=== PATIENT | female | born 1995 | race Caucasian/White ===

== ENCOUNTER 2016-12-24 13:57 | Inpatient (IN) | payer MEDICAID ==
[2016-12-24] MEDS ORDERED: Sodium Chloride 0.9% 10 ML Syringe FLUSH PRN (15:00)
--- NOTE | 2016-12-24 16:10 | PCM.PNLD ---
Labor Progress Note - VS & Meds Vital Signs: Last Vital Signs Temp 98.3 F 12/24/16 14:05 Pulse 90 12/24/16 14:05 Resp 16 12/24/16 14:05 BP 134/84 12/24/16 14:05 Pulse Ox 98 12/24/16 14:05 Active Medications: Current Medications Sodium Chloride (Saline Flush) 10 ml FLUSH ASDIRECTED PRN PRN Reason: Keep Vein Open - Uterine Contractions Uterine Monitoring Mode: External [place] Contraction Frequency (min): 2-7 Contraction Duration (sec): 40-70 Contraction Intensity: Moderate Uterine Resting Tone: Soft - Vaginal Exam Dilation (cm): 4 Effacement (Percent): 90 Station: -1 Cervical Position: Midposition Sterile Vaginal Exam Performed By: Ori Thompson Vaginal Exam Comment: Artificial rupture of membranes clear fluid. Repeat negative. Vaginal delivery
[2016-12-24] MEDS ORDERED: Lactated Ringers 1,000 ML IV ONE (16:30)
[2016-12-24] MEDS ORDERED: Oxytocin 10 Units/1 ML SDV IM PRN (16:31)
[2016-12-24] MEDS ORDERED: Lidocaine 1% 20 ML MDV INJECT PRN (16:32)
[2016-12-24] MEDS ORDERED: fentaNYL 100 MCG/2 ML SDV ONE (17:12)
[2016-12-24] MEDS ORDERED: fentaNYL 300 MCG in Ropivacaine 200 ML IV ONE (17:15)
[2016-12-24] MEDS ORDERED: fentaNYL 100 MCG/2 ML SDV EPIDUR ONE (17:15)
[2016-12-24] MEDS: Lactated Ringers 1,000 ML IV SCH ×2 (18:30→19:21)
[2016-12-24] MEDS ORDERED: Naloxone 0.4 MG in Sodium Chloride 0.9% 100 ML IV PRN (18:40)
[2016-12-24] MEDS ORDERED: Naloxone 0.4 MG/ML SDV IVPUSH PRN (18:40)
[2016-12-24] MEDS ORDERED: ePHEDrine 50 MG/ML SDV IVPUSH PRN (18:40)
[2016-12-24] MEDS ORDERED: diphenhydrAMINE 50 MG/ML SDV IVPUSH PRN (18:40)
[2016-12-24] MEDS ORDERED: Promethazine 25 MG/ML SDV IV PRN (18:40)
[2016-12-24] MEDS ORDERED: Acetaminophen/Codeine 300-30 MG Tab PO PRN (23:02)
--- NOTE | 2016-12-24 23:08 | PCM.DEL ---
L & D Note - General Info Date of Service: 12/24/16 - Delivery Note Labor: spontaneous Delivery Outcome: Livebirth Delivery Method: Spontaneous Vaginal Delivery Presentation: OA Nuchal cord: none Prep: povidone-iodine (betadine Anesthesia Type: Local, Epidural Anesthetic: lidocaine (xylocaine) 1% plain Local anesthetic volume: 3cc Amniotic Fluid Description: Clear Episiotomy Type: None Laceration: 1st degree Suture type: vicryl Suture size: 4-0 Placenta: intact, spontaneous Cord: 3 vessels Resuscitation needed: No [place]: suctioned Delivery Comments (Free Text/Narrative):: Blood loss less than 500. No complications. - Patient Data Vitals - most recent: Last Vital Signs Temp 98.3 F 12/24/16 14:05 Pulse 94 12/24/16 18:31 Resp 16 12/24/16 14:05 BP 102/62 12/24/16 18:31 Pulse Ox 98 12/24/16 14:05 Weight - most recent: 149 lb I&O - last 24 hours: Intake & Output 12/24/16 12/24/16 12/25/16 14:59 22:59 06:59 Intake Total 2000 Balance 2000 Med Orders - Current: Current Medications Acetaminophen/Codeine Phosphate (Tylenol With Codeine No.3 300mg/30mg) 1 tab PO Q4H PRN PRN Reason: Pain (moderate 4-6) Diphenhydramine HCl (Benadryl) 25 mg IVPUSH ASDIRECTED PRN PRN Reason: PRURITUS Ephedrine Sulfate (Ephedrine Sulfate) 5 mg IVPUSH ASDIRECTED PRN PRN Reason: HYPOTENSION Lactated Ringer's (Ringers, Lactated) 1,000 mls @ 125 mls/hr IV ASDIRECTED [facility] Last Admin: 12/24/16 19:21 Dose: 125 mls/hr Naloxone HCl 0.4 mg/ Sodium (Chloride) 101 mls @ 25 mls/hr IV ASDIRECTED PRN PRN Reason: PER ORDER OF ANESTHESIA Ibuprofen (Motrin) 800 mg PO Q8H [facility] Lidocaine HCl (Xylocaine 1%) 20 ml INJECT ONETIME PRN PRN Reason: Other Naloxone HCl (Narcan) 0.1 mg IVPUSH ASDIRECTED PRN PRN Reason: RESPIRATORY STATUS Non-Formulary Medication (Pnv95/Ferrous Fumarate/Fa [ Vitamins Tablet]) 1 each PO DAILY [facility] Oxytocin (Pitocin) 10 unit IM ONETIME PRN PRN Reason: Other Promethazine HCl (Phenergan) 6.25 - 12.5 mg IV Q4H PRN PRN Reason: NAUSEA AND VOMITING Sodium Chloride (Saline Flush) 10 ml FLUSH ASDIRECTED PRN PRN Reason: Keep Vein Open Discontinued Medications Fentanyl (Sublimaze) Confirm Administered Dose 400 mcg .ROUTE .STK-MED ONE Stop: 12/24/16 17:13 Lactated Ringer's (Ringers, Lactated) 1,000 mls @ 999 mls/hr IV BOLUS ONE Stop: 12/24/16 17:30 Last Admin: 12/24/16 17:00 Dose: 999 mls/hr - Problem List & Annotations (1) Vaginal delivery SNOMED Code(s): 696148164 Code(s): O80 - ENCOUNTER FOR FULL-TERM UNCOMPLICATED DELIVERY Status: Acute Current Visit: Yes - Problem List Review Problem List Initiated/Reviewed/Updated: Yes - My Orders Last 24 Hours: My Active Orders 12/24/16 15:00 Height and Weight [RC] Q8H Sodium Chloride 0.9% [Saline Flush] 10 ml FLUSH ASDIRECTED PRN Peripheral IV Insertion Adult [OM.PC] Urgent Resuscitation Status Routine 12/24/16 15:01 Up ad [place] [RC] ASDIRECTED 12/24/16 16:31 Oxytocin [Pitocin] 10 unit IM ONETIME PRN 12/24/16 16:32 Lidocaine 1% [Xylocaine 1%] 20 ml INJECT ONETIME PRN 12/24/16 18:15 Lactated Ringers [Ringers, Lactated] 1,000 ml IV ASDIRECTED 12/24/16 23:02 May Shower [RC] ASDIRECTED Vital Signs [RC] PFP Acetaminophen/Codeine [Tylenol with Codeine No.3 300MG/30MG] 1 tab PO Q4H PRN Assess Lochia [WOMSER] Per Unit Routine Assess Uterine Involution [WOMSER] Per Unit Routine Breast Pump [WOMSER] Per Unit Routine 12/24/16 23:04 Ice Therapy [OM.PC] Per Unit Routine Perineal Care [OM.PC] Per Unit Routine Peripheral IV Discontinue [OM.PC] Routine Sitz Bath [OM.PC] Per Unit Routine 12/24/16 23:15 Ibuprofen [Motrin] 800 mg PO Q8H 12/24/16 Breakfast Nothing Per Oral Diet [DIET] Regular Diet [DIET] 12/25/16 05:11 HEMOGLOBIN/HEMATOCRIT,HH [HEME] AM 12/25/16 09:00 Escitalopram [Lexapro] 20 mg PO DAILY PNV95/Ferrous Fumarate/FA [ Vitamins Tablet] 1 each PO DAILY - Plan Plan:: 1. Normal care. 2. Ibuprofen 800 every 8 hours scheduled and Tylenol #3 when necessary.
[2016-12-24] MEDS: Ibuprofen 800 MG Tab PO SCH (23:53)
[2016-12-25] MEDS: Ibuprofen 800 MG Tab PO SCH ×3 (06:32→23:37)
--- NOTE | 2016-12-25 07:53 | PCM.PNPP ---
- General Info Date of Service: 12/25/16 Admission Dx/Problem (Free Text): Patient states she has mild bleeding. No other complaints. - Patient Data Vital Signs - most recent: Last Vital Signs Temp 98.3 F 12/24/16 14:05 Pulse 94 12/24/16 18:31 Resp 16 12/24/16 14:05 BP 102/62 12/24/16 18:31 Pulse Ox 98 12/24/16 14:05 Weight - most recent: 149 lb I&O - last 24 hours: Intake & Output 12/24/16 12/25/16 12/25/16 22:59 06:59 14:59 Intake Total 2000 Balance 2000 Lab Results - last 24 hrs: Laboratory Results - last 24 hr 12/25/16 Range/Units 06:40 Hgb 10.8 L D (11.5-15.5) g/dL Hct 32.7 (30.0-51.3) % Med Orders - Current: Current Medications Acetaminophen/Codeine Phosphate (Tylenol With Codeine No.3 300mg/30mg) 1 tab PO Q4H PRN PRN Reason: Pain (moderate 4-6) Diphenhydramine HCl (Benadryl) 25 mg IVPUSH ASDIRECTED PRN PRN Reason: PRURITUS Ephedrine Sulfate (Ephedrine Sulfate) 5 mg IVPUSH ASDIRECTED PRN PRN Reason: HYPOTENSION Escitalopram Oxalate (Lexapro) 20 mg PO DAILY [facility] Lactated Ringer's (Ringers, Lactated) 1,000 mls @ 125 mls/hr IV ASDIRECTED [facility] Last Admin: 12/24/16 19:21 Dose: 125 mls/hr Naloxone HCl 0.4 mg/ Sodium (Chloride) 101 mls @ 25 mls/hr IV ASDIRECTED PRN PRN Reason: PER ORDER OF ANESTHESIA Ibuprofen (Motrin) 800 mg PO Q8H [facility] Last Admin: 12/25/16 06:32 Dose: 800 mg Lidocaine HCl (Xylocaine 1%) 20 ml INJECT ONETIME PRN PRN Reason: Other Last Admin: 12/24/16 22:40 Dose: 20 ml Naloxone HCl (Narcan) 0.1 mg IVPUSH ASDIRECTED PRN PRN Reason: RESPIRATORY STATUS Oxytocin (Pitocin) 10 unit IM ONETIME PRN PRN Reason: Other Last Admin: 12/24/16 22:40 Dose: 10 unit Multivit/Folic Acid/Iron (-U) 1 each PO DAILY [facility] Promethazine HCl (Phenergan) 6.25 - 12.5 mg IV Q4H PRN PRN Reason: NAUSEA AND VOMITING Sodium Chloride (Saline Flush) 10 ml FLUSH ASDIRECTED PRN PRN Reason: Keep Vein Open Discontinued Medications Fentanyl (Sublimaze) Confirm Administered Dose 400 mcg .ROUTE .STK-MED ONE Stop: 12/24/16 17:13 Lactated Ringer's (Ringers, Lactated) 1,000 mls @ 999 mls/hr IV BOLUS ONE Stop: 12/24/16 17:30 Last Admin: 12/24/16 17:00 Dose: 999 mls/hr - Infant Interaction Support Person: Mother, Sister, Significant Other - Recovery Exam Fundal Tone: Firms with Massage Fundal Level: At Umbilicus Fundal Placement: Midline Lochia Amount: Small Lochia Color: Rubra/Red Perineum Description: Edematous Episiotomy/Laceration: Approximated Bladder Status: Voiding - Exam General: alert, oriented Lungs: Normal respiratory effort Abdomen: other (Fundus firm) Extremities: no edema - Problem List & Annotations (1) Vaginal delivery SNOMED Code(s): 575691736 Code(s): O80 - ENCOUNTER FOR FULL-TERM UNCOMPLICATED DELIVERY Status: Acute Current Visit: Yes - Problem List Review Problem List Initiated/Reviewed/Updated: Yes - My Orders Last 24 Hours: My Active Orders 12/24/16 15:00 Height and Weight [RC] Q8H Sodium Chloride 0.9% [Saline Flush] 10 ml FLUSH ASDIRECTED PRN Peripheral IV Insertion Adult [OM.PC] Urgent Resuscitation Status Routine 12/24/16 15:01 Up ad [place]an [RC] ASDIRECTED 12/24/16 16:31 Oxytocin [Pitocin] 10 unit IM ONETIME PRN 12/24/16 16:32 Lidocaine 1% [Xylocaine 1%] 20 ml INJECT ONETIME PRN 12/24/16 18:15 Lactated Ringers [Ringers, Lactated] 1,000 ml IV ASDIRECTED 12/24/16 23:02 May Shower [RC] ASDIRECTED Vital Signs [RC] PFP Acetaminophen/Codeine [Tylenol with Codeine No.3 300MG/30MG] 1 tab PO Q4H PRN Assess Lochia [WOMSER] Per Unit Routine Assess Uterine Involution [WOMSER] Per Unit Routine Breast Pump [WOMSER] Per Unit Routine 12/24/16 23:04 Ice Therapy [OM.PC] Per Unit Routine Perineal Care [OM.PC] Per Unit Routine Peripheral IV Discontinue [OM.PC] Routine Sitz Bath [OM.PC] Per Unit Routine 12/24/16 23:15 Ibuprofen [Motrin] 800 mg PO Q8H 12/25/16 09:00 Escitalopram [Lexapro] 20 mg PO DAILY Vit/FA/Fe Fumarate [-U] 1 each PO DAILY - Plan Plan:: 1. continue current care
[2016-12-25] MEDS: Prenatal Multivitamin with Calcium/Folic Acid/Fe Fumarate Cap PO SCH (09:49)
[2016-12-25] MEDS: Escitalopram 20 MG Tab PO SCH (09:49)
[2016-12-26] MEDS: Ibuprofen 800 MG Tab PO SCH (07:24)
--- NOTE | 2016-12-26 07:39 | PCM.PNPP ---
- General Info Date of Service: 12/26/16 Admission Dx/Problem (Free Text): Patient without complaints. Bleeding slowing. She's tolerating her pain with ibuprofen. No other concerns. Functional Status: Reports: pain controlled - Patient Data Vital Signs - most recent: Last Vital Signs Temp 97.5 F 12/25/16 19:30 Pulse 87 12/25/16 19:30 Resp 16 12/25/16 19:30 BP 130/85 12/25/16 19:30 Pulse Ox 99 12/25/16 19:30 Weight - most recent: 149 lb Med Orders - Current: Current Medications Acetaminophen/Codeine Phosphate (Tylenol With Codeine No.3 300mg/30mg) 1 tab PO Q4H PRN PRN Reason: Pain (moderate 4-6) Escitalopram Oxalate (Lexapro) 20 mg PO DAILY [facility] Last Admin: 12/25/16 09:49 Dose: 20 mg Lactated Ringer's (Ringers, Lactated) 1,000 mls @ 125 mls/hr IV ASDIRECTED [facility] Last Admin: 12/24/16 19:21 Dose: 125 mls/hr Ibuprofen (Motrin) 800 mg PO Q8H [facility] Last Admin: 12/26/16 07:24 Dose: 800 mg Lidocaine HCl (Xylocaine 1%) 20 ml INJECT ONETIME PRN PRN Reason: Other Last Admin: 12/24/16 22:40 Dose: 20 ml Oxytocin (Pitocin) 10 unit IM ONETIME PRN PRN Reason: Other Last Admin: 12/24/16 22:40 Dose: 10 unit Multivit/Folic Acid/Iron (-U) 1 each PO DAILY [facility] Last Admin: 12/25/16 09:49 Dose: 1 each Sodium Chloride (Saline Flush) 10 ml FLUSH ASDIRECTED PRN PRN Reason: Keep Vein Open Discontinued Medications Diphenhydramine HCl (Benadryl) 25 mg IVPUSH ASDIRECTED PRN PRN Reason: PRURITUS Ephedrine Sulfate (Ephedrine Sulfate) 5 mg IVPUSH ASDIRECTED PRN PRN Reason: HYPOTENSION Fentanyl (Sublimaze) Confirm Administered Dose 400 mcg .ROUTE .STK-MED ONE Stop: 12/24/16 17:13 Lactated Ringer's (Ringers, Lactated) 1,000 mls @ 999 mls/hr IV BOLUS ONE Stop: 12/24/16 17:30 Last Admin: 12/24/16 17:00 Dose: 999 mls/hr Naloxone HCl 0.4 mg/ Sodium (Chloride) 101 mls @ 25 mls/hr IV ASDIRECTED PRN PRN Reason: PER ORDER OF ANESTHESIA Naloxone HCl (Narcan) 0.1 mg IVPUSH ASDIRECTED PRN PRN Reason: RESPIRATORY STATUS Promethazine HCl (Phenergan) 6.25 - 12.5 mg IV Q4H PRN PRN Reason: NAUSEA AND VOMITING - Interaction Support Person: Mother, Sister, Significant Other - Recovery Exam Fundal Tone: Firm Fundal Level: 1 Fingerbreadths Below Umbilicus Fundal Placement: Midline Lochia Amount: Small Lochia Color: Rubra/Red Perineum Description: Edematous Episiotomy/Laceration: Approximated Bladder Status: Voiding Urinary Elimination: Voided - Exam General: alert, oriented, cooperative Lungs: Normal respiratory effort Abdomen: other (Fundus firm) Extremities: no edema Psy/Mental Status: alert, normal affect, normal mood - Problem List & Annotations (1) Vaginal delivery SNOMED Code(s): 405860938 Code(s): O80 - ENCOUNTER FOR FULL-TERM UNCOMPLICATED DELIVERY Status: Acute Current Visit: Yes - Problem List Review Problem List Initiated/Reviewed/Updated: Yes - My Orders Last 24 Hours: My Active Orders 12/25/16 09:00 Escitalopram [Lexapro] 20 mg PO DAILY Vit/FA/Fe Fumarate [-U] 1 each PO DAILY - Plan Plan:: 1. discharge home
--- NOTE | 2016-12-26 07:44 | PCM.DCSUM1 ---
Discharge Summary - Hospital Course Free Text/Narrative:: Hospital course-status post delivery hemoglobin was over 10. Patient breast fed and pump at the same time. It went well and she had no concerns. Her pain was controlled with ibuprofen and she did not use Tylenol No. 3. Bleeding was light. Brief History: This is a 21-year-old came in in spontaneous labor. She was 39 weeks. She had a normal female healthy vaginally. - Discharge Data Discharge Date: 12/26/16 Discharge Disposition: Home, Self-Care 01 Condition: Good - Discharge Diagnosis/Problem(s) (1) Vaginal delivery SNOMED Code(s): 352294066 ICD Code: O80 - ENCOUNTER FOR FULL-TERM UNCOMPLICATED DELIVERY Status: Acute Current Visit: Yes - Patient Instructions Diet: Regular Diet as Tolerated Activity: As Tolerated Driving: May Drive Today Showering/Bathing: May Shower Notify Provider of: Fever, Increased Pain, Swelling and Redness, Drainage, Nausea and/or Vomiting Other/Special Instructions: 1. Recheck in 6 weeks for care with Dr. 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 [employer] - [place], How To Prepare Infant Formula, Home Care Instructions for Mom, Baby Safe Sleeping Information, Kumo-cx-Recl, Challenges and Solutions, Care After Vaginal Delivery - Discharge Summary/Plan Comment DC Time >30 min.: No - Patient Data Vitals - Most Recent: Last Vital Signs Temp 97.5 F 12/25/16 19:30 Pulse 87 12/25/16 19:30 Resp 16 12/25/16 19:30 BP 130/85 12/25/16 19:30 Pulse Ox 99 12/25/16 19:30 Weight - Most Recent: 149 lb Med Orders - Current: Current Medications Acetaminophen/Codeine Phosphate (Tylenol With Codeine No.3 300mg/30mg) 1 tab PO Q4H PRN PRN Reason: Pain (moderate 4-6) Escitalopram Oxalate (Lexapro) 20 mg PO DAILY [facility] Last Admin: 12/25/16 09:49 Dose: 20 mg Lactated Ringer's (Ringers, Lactated) 1,000 mls @ 125 mls/hr IV ASDIRECTED [facility] Last Admin: 12/24/16 19:21 Dose: 125 mls/hr Ibuprofen (Motrin) 800 mg PO Q8H [facility] Last Admin: 12/26/16 07:24 Dose: 800 mg Lidocaine HCl (Xylocaine 1%) 20 ml INJECT ONETIME PRN PRN Reason: Other Last Admin: 12/24/16 22:40 Dose: 20 ml Oxytocin (Pitocin) 10 unit IM ONETIME PRN PRN Reason: Other Last Admin: 12/24/16 22:40 Dose: 10 unit Multivit/Folic Acid/Iron (-U) 1 each PO DAILY [facility] Last Admin: 12/25/16 09:49 Dose: 1 each Sodium Chloride (Saline Flush) 10 ml FLUSH ASDIRECTED PRN PRN Reason: Keep Vein Open Discontinued Medications Diphenhydramine HCl (Benadryl) 25 mg IVPUSH ASDIRECTED PRN PRN Reason: PRURITUS Ephedrine Sulfate (Ephedrine Sulfate) 5 mg IVPUSH ASDIRECTED PRN PRN Reason: HYPOTENSION Fentanyl (Sublimaze) Confirm Administered Dose 400 mcg .ROUTE .STK-MED ONE Stop: 12/24/16 17:13 Lactated Ringer's (Ringers, Lactated) 1,000 mls @ 999 mls/hr IV BOLUS ONE Stop: 12/24/16 17:30 Last Admin: 12/24/16 17:00 Dose: 999 mls/hr Naloxone HCl 0.4 mg/ Sodium (Chloride) 101 mls @ 25 mls/hr IV ASDIRECTED PRN PRN Reason: PER ORDER OF ANESTHESIA Naloxone HCl (Narcan) 0.1 mg IVPUSH ASDIRECTED PRN PRN Reason: RESPIRATORY STATUS Promethazine HCl (Phenergan) 6.25 - 12.5 mg IV Q4H PRN PRN Reason: NAUSEA AND VOMITING *Q Meaningful Use (DIS) - VTE *Q VTE Criteria *Q: - Stroke *Q Stroke Criteria *Q: - AMI *Q AMI Criteria *Q:
[2016-12-26] MEDS ORDERED: Measles, Mumps & Rubella Vaccine 0.5 ML SDV SUBCUT ONE (08:16)
[2016-12-26] MEDS: Prenatal Multivitamin with Calcium/Folic Acid/Fe Fumarate Cap PO SCH (08:51)
[2016-12-26] MEDS: Escitalopram 20 MG Tab PO SCH (08:51)
[2016-12-26 12:02] VITALS: BP 123/80
== END 2016-12-26 10:30 | disposition home or self-care (01) | DRG 560 ==
LOC: FB.OBCHECK 13:57 → FB.OB 13:57 → FB.OBCHECK 16:03
PROVIDERS: ADMIT Family Medicine; ATTEND Family Medicine
PROC: 10E0XZZ Delivery of Products of Conception, External Approach (ICD-10-PCS; principal; 2016-12-24)
PROC: 10907ZC Drainage of Amniotic Fluid, Therapeutic from Products of Conception, Via Natural or Artificial Opening (ICD-10-PCS; 2016-12-24)
PROC: 00HU33Z Insertion of Infusion Device into Spinal Canal, Percutaneous Approach (ICD-10-PCS; 2016-12-24)
PROC: 0HQ9XZZ Repair Perineum Skin, External Approach (ICD-10-PCS; 2016-12-24)
DX: O70.0 First degree perineal laceration during delivery (principal); Z3A.38 38 weeks gestation of pregnancy; Z37.0 Single live birth
CPT/HCPCS: 36415; 85014; 85018; 90707; 99211; A4217; A9270-GY; J2590; J2795; J3010; J7120

== ENCOUNTER 2019-09-30 23:06 | Emergency (ER) | payer BC, MEDICAID ==
[2019-09-30] MEDS ORDERED: Sodium Chloride 0.9% 1,000 ML IV SCH (23:30)
--- NOTE | 2019-09-30 23:38 | EDM.PDOC ---
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 [employer] Dr Thompson following her for , last seen yesterday, no cx check which will be next week states she has some soreness in her lower abd from vomiting, denies ctxs does not want Zofran ("does not work"), just wants IVF says she n/v throughout her first preg and got IVF x 11x, this is just the 2nd time with this preg, last time was in Feb head vtx on exam here as well as in office, FHT 147, good activity no dysuria or burning, no f/c/d her with and daughter bodyach Pain Score (Numeric/FACES): 6 - Related Data Allergies Allergy/AdvReac Type Severity Reaction Status Date / Time hydrocodone Allergy Itching Verified 05/27/18 15:52 Home Meds: Home Meds Escitalopram [Lexapro] 20 mg PO DAILY 05/07/16 [History] Past Medical History - Past Health History Medical/Surgical History: Denies Medical/Surgical History Respiratory History: Reports: Asthma Other Respiratory History: stress induced asthma [employer]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: 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 [employer]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 [employer]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 [employer]EDER History: LMP 03/30/2016 Psychiatric History: Reports: ADHD, Anxiety, Depression Hematologic History: Reports: Anemia - Infectious Disease History Infectious Disease History: Reports: Chicken Pox Social & Family History - Family History Family Medical History: Noncontributory - Caffeine Use Caffeine Use: Reports: Other Caffeine Use Comment: rarely ED ROS GENERAL - Review of Systems Review Of Systems: See Below Constitutional: Reports: No Symptoms HEENT: Reports: No Symptoms Respiratory: Reports: No Symptoms Cardiovascular: Reports: No Symptoms Endocrine: Reports: No Symptoms GI/Abdominal: Reports: Abdominal Pain, Nausea, Vomiting : Reports: No Symptoms Musculoskeletal: Reports: No Symptoms Skin: Reports: No Symptoms Neurological: Reports: No Symptoms Psychiatric: Reports: No Symptoms Hematologic/Lymphatic: Reports: No Symptoms Immunologic: Reports: No Symptoms ED EXAM - Physical Exam Exam: See Below Exam Limited By: No Limitations General Appearance: Alert, WD/WN, No Apparent Distress, Other (alert, pleasant, nonill, cooperative) Eye Exam: Bilateral Eye: EOMI Nose: Normal Inspection Throat/Mouth: Normal Inspection Head: Atraumatic, Normocephalic Neck: Normal Inspection, Supple Respiratory/Chest: No Respiratory Distress, Lungs Clear, Normal Breath Sounds Cardiovascular: Regular Rate, Rhythm, No Edema GI/Abdominal Exam: Soft, Non-Tender, Other (gravid, quite soft, vtx by [place] , no ctx or tightening of uterus, no definite tender across abd, no CVAT b/l) Back Exam: Normal Inspection, Full Range of Motion Extremities: Normal Inspection, Normal Range of Motion, Non-Tender, Other ( trace pretib edema b/l, symmetric) Neurological: Alert, Oriented, CN II-XII Intact, Normal Cognition, No Motor/ Sensory Deficits Psychiatric: Normal Affect, Normal Mood Skin Exam: Warm, Dry, Intact, Normal Color, No Rash Course - Vital Signs Last Recorded V/S: Last Vital Signs Temp 36.8 C 09/30/19 23:06 Pulse 104 H 09/30/19 23:06 Resp 17 09/30/19 23:06 BP 113/71 09/30/19 23:06 Pulse Ox 100 09/30/19 23:06 - Orders/Labs/Meds Orders: Active Orders 24 hr Category Date Time Status URINALYSIS W/MICROSCOPIC [UA W/MICROSCOPIC] [URIN] Stat Lab 09/30/19 23:25 Ordered Sodium Chloride 0.9% [Normal Saline] 1,000 ml Med 09/30/19 23:30 Ordered IV ASDIRECTED Medication Orders Sodium Chloride (Normal Saline) 1,000 mls @ 999 mls/hr IV ASDIRECTED [facility] Last Admin: 09/30/19 23:35 Dose: 999 mls/hr Labs: Laboratory Tests 09/30/19 09/30/19 Range/Units 23:38 23:38 WBC 12.0 (4.5-12.0) X10-3/uL RBC 3.80 (3.23-5.20) x10(6)uL Hgb 10.1 L (11.5-15.5) g/dL Hct 30.5 (30.0-51.3) % MCV 80.2 (80-96) fL MCH 26.5 L (27.7-33.6) pg MCHC 33.0 (32.2-35.4) g/dL RDW 16.1 H (11.5-15.5) % Plt Count 315 (125-369) X10(3)uL MPV 8.0 (7.4-10.4) fL Neut % (Auto) 84.3 H (46-82) % Lymph % (Auto) 9.6 L (13-37) % [place] % (Auto) 5.6 (4-12) % Eos % (Auto) 0 L (1.0-5.0) % Baso % (Auto) 0 (0-2) % Neut # (Auto) 10.1 H (1.6-8.3) # Lymph # (Auto) 1.2 (0.6-5.0) # [place] # (Auto) 0.7 (0.0-1.3) # Eos # (Auto) 0.0 (0.0-0.8) # Baso # (Auto) 0.0 (0.0-0.2) # Sodium 141 (135-145) mmol/L Potassium 3.6 (3.5-5.3) mmol/L Chloride 105 (100-110) mmol/L Carbon Dioxide 26 (21-32) mmol/L BUN 9 (7-18) mg/dL Creatinine 0.7 (0.55-1.02) mg/dL Est Cr Clr Drug Dosing 100.74 mL/min Estimated GFR (MDRD) > 60 (>60) BUN/Creatinine Ratio 12.9 (9-20) Glucose 85 (80-116) mg/dL Calcium 7.9 L (8.6-10.2) mg/dL Total Bilirubin 0.3 (0.1-1.3) mg/dL AST 17 (5-25) IU/L ALT 13 D (12-36) U/L Alkaline Phosphatase 100 (56-112) IU/L Total Protein 6.6 (6.0-8.0) g/dL Albumin 2.6 L (3.5-5.2) g/dL Globulin 4.0 g/dL Albumin/Globulin Ratio 0.7 Meds: Medications Generic Name Dose Route Start Last Admin Trade Name Marco Antonio PRN Reason Stop Dose Admin Sodium Chloride 1,000 mls @ 999 mls/hr 09/30/19 23:30 09/30/19 23:35 Normal Saline IV 999 mls/hr ASDIRECTED [facility] Administration - Re-Assessments/Exams Free Text/Narrative Re-Assessment/Exam: 10/01/19 00:52 felt better after 1 liter of NS, still some discomfort in lower abd, no ctxs did not want a 2nd liter of NS, wanted to go home and rest fetus remained active vss, no s/s of preeclampsia 10/01/19 01:03 pt advised that doxylamine comes OTC and can be used to supplement her Rx pt has 50 ketones in urine, would benefit from a 2nd liter of NS, however she prefers to go home to put her daughter to bed, understands that she can come back any time for additional IV fluids Departure - Departure Time of Disposition: 00:53 Disposition: Home, Self-Care 01 Condition: Good Clinical Impression: Nausea and vomiting during , Moderate dehydration, Ketonuria - Discharge Information *PRESCRIPTION DRUG MONITORING PROGRAM REVIEWED*: Not Applicable *COPY OF PRESCRIPTION DRUG MONITORING REPORT IN PATIENT [place]: Not Applicable Instructions: Nausea and Vomiting, Adult, Rehydration, Adult Referrals: Ori Thompson MD [Primary Care Provider] - Additional Instructions: Increase fluids. Get adequate rest. May take additional doses of doxylamine 12.5 mg (1/2 tab of 25 mg OTC) in the morning and another in the middle of the day, as needed. Contact Dr Thompson for further instructions. Return to Emergency Department if you are feeling worse or are unable to keep fluids down. Sepsis Event Note - Evaluation Sepsis Screening Result: No Definite Risk - Focused Exam Vital Signs: Vital Signs Temp Pulse Resp BP Pulse Ox 09/30/19 23:06 36.8 C 104 H 17 113/71 100 Date Exam was Performed: 10/01/19 Time Exam was Performed: 00:52 - My Orders Last 24 Hours: My Active Orders 09/30/19 23:25 URINALYSIS W/MICROSCOPIC [UA W/MICROSCOPIC] [URIN] Stat 09/30/19 23:30 Sodium Chloride 0.9% [Normal Saline] 1,000 ml IV ASDIRECTED - Assessment/Plan Last 24 Hours: My Active Orders 09/30/19 23:25 URINALYSIS W/MICROSCOPIC [UA W/MICROSCOPIC] [URIN] Stat 09/30/19 23:30 Sodium Chloride 0.9% [Normal Saline] 1,000 ml IV ASDIRECTED
[2019-10-01 01:12] VITALS: BP 136/80; PULSE 89
== END 2019-10-01 01:09 | disposition home or self-care (01) ==
LOC: FB.ED 23:06
DX: O99.283 Endocrine, nutritional and metabolic diseases complicating pregnancy, third trimester (principal); E86.0 Dehydration; O21.2 Late vomiting of pregnancy; O99.513 Diseases of the respiratory system complicating pregnancy, third trimester; J45.909 Unspecified asthma, uncomplicated; O99.353 Diseases of the nervous system complicating pregnancy, third trimester; F32.9 Major depressive disorder, single episode, unspecified; F41.9 Anxiety disorder, unspecified; O99.89 Other specified diseases and conditions complicating pregnancy, childbirth and the puerperium; R82.4 Acetonuria; Z88.5 Allergy status to narcotic agent; Z3A.36 36 weeks gestation of pregnancy
CPT/HCPCS: 36415; 80053; 81001; 85025; 96360; 99284; J7030

== ENCOUNTER 2019-10-14 04:08 | Inpatient (IN) | payer BC ==
[2019-10-14] MEDS: Lactated Ringers 1,000 ML IV SCH ×2 (04:19→04:42)
[2019-10-14] MEDS ORDERED: Ampicillin 2 GM in Sodium Chloride 0.9% 100 ML IV ONE (04:32)
[2019-10-14] MEDS ORDERED: Oxytocin 10 Units/1 ML SDV IM ONE (05:00)
[2019-10-14] MEDS ORDERED: Witch Hazel Medicated Pads 40/Jar TOP PRN (05:27)
--- NOTE | 2019-10-14 05:33 | PCM.DEL ---
L & D Note - General Info Date of Service: 10/14/19 - Delivery Note Labor: Spontaneous Delivery Outcome: Livebirth Presentation: Left Occiput Anterior (JOSE) Nuchal Cord: Present (x1) Anesthesia Type: None Amniotic Fluid Description: Meconium Stained Episiotomy Type: None Laceration: None Placenta: Intact, Spontaneous Cord: 3 Vessels Resuscitation Needed: No [place]: Bulb Syringe - General Info Date of Service: 10/14/19 Admission Dx/Problem (Free Text): 24-year-old EDC 10/23/19 comes in in spontaneous labor. She had spontaneous rupture membranes with meconium-stained. Delivered within a half hour after she ruptured membranes. Should one nuchal cord and the baby. Mom is group B+. 2 g answer given and most of the medication cut in before she delivered. Cord blood was taken and the cord was clamped on the perineum and dad cut the cord. Placenta was delivered and all intact. Blood loss less than 500 and complications none. - Patient Data Weight - Most Recent: 151 lb Med Orders - Current: Current Medications Acetaminophen/Codeine Phosphate (Tylenol With Codeine No.3 300mg/30mg) 1 tab PO Q4H PRN PRN Reason: Pain (moderate 4-6) Escitalopram Oxalate (Lexapro) 20 mg PO DAILY [facility] Lactated Ringer's (Ringers, Lactated) 1,000 mls @ 999 mls/hr IV BOLUS [facility] Last Admin: 10/14/19 04:19 Dose: 999 mls/hr Ibuprofen (Motrin) 800 mg PO Q8H [facility] Multivit/Folic Acid/Iron (-U) 1 each PO DAILY [facility] Chan Ontiveros (Tucks) 1 pad TOP ASDIRECTED PRN PRN Reason: Hemorrhoids Discontinued Medications Ampicillin Sodium 2 gm/ Sodium (Chloride) 100 mls @ 200 mls/hr IV ONETIME ONE Stop: 10/14/19 05:01 Last Admin: 10/14/19 04:41 Dose: 200 mls/hr - Exam General: Alert, Oriented Lungs: Normal Respiratory Effort - Problem List & Annotations (1) Vaginal delivery SNOMED Code(s): 715933264 Code(s): O80 - ENCOUNTER FOR FULL-TERM UNCOMPLICATED DELIVERY Status: Acute Current Visit: No (2) Group beta Strep positive SNOMED Code(s): 999290106, 310964789 Code(s): B95.1 - STREPTOCOCCUS, GROUP B, CAUSING DISEASES CLASSD ELSWHR Status: Acute Current Visit: Yes (3) Meconium staining SNOMED Code(s): 085842196 Code(s): P96.83 - MECONIUM STAINING Status: Acute Current Visit: Yes - Problem List Review Problem List Initiated/Reviewed/Updated: Yes - My Orders Last 24 Hours: My Active Orders 10/14/19 04:15 Lactated Ringers [Ringers, Lactated] 1,000 ml IV BOLUS 10/14/19 05:27 Patient Status [ADT] Routine May Shower [RC] ASDIRECTED Up ad Hodan [RC] ASDIRECTED Vital Signs [RC] PFP Acetaminophen/Codeine [Tylenol with Codeine No.3 300MG/30MG] 1 tab PO Q4H PRN witch Teofilo [Tucks] 1 pad TOP ASDIRECTED PRN Assess Lochia [WOMSER] Per Unit Routine Assess Uterine Involution [WOMSER] Per Unit Routine Breast Pump [WOMSER] Per Unit Routine Resuscitation Status Routine 10/14/19 05:28 Ice Therapy [OM.PC] Per Unit Routine Perineal Care [OM.PC] Per Unit Routine Peripheral IV Discontinue [OM.PC] Routine Sitz Bath [OM.PC] Per Unit Routine 10/14/19 05:30 Ibuprofen [Motrin] 800 mg PO Q8H 10/14/19 09:00 Escitalopram [Lexapro] 20 mg PO DAILY Vit/FA/Fe Fumarate [-U] 1 each PO DAILY 10/14/19 Breakfast Regular Diet [DIET] 10/15/19 05:11 HEMOGLOBIN/HEMATOCRIT,HH [HEME] AM - Plan Plan:: 1. Normal orders. Please see the orders. 2. Mom will breast-feed. 3. Hemoglobin/hematocrit in the a.m.
[2019-10-14] MEDS: Ibuprofen 800 MG Tab PO SCH ×3 (05:40→20:46)
--- NOTE | 2019-10-14 05:51 | PCM.SN ---
- Free Text/Narrative Note: [facility] Date: 10/14/2019 Time: 0439 to 0508 Dx: Active Labor with Severe Pain and Meconium Presentation Rx: Labor Intrathecal Narcotic and Delivery Standby I was called to the OB department per the RN and patient request for labor pain control. She is progressing very fast and by the time I entered the room, she was complete and ready to push. No actions were required by me. However, as the physician was delivering this baby, he noted meconium staining and requested that I remain here until the baby was stable. He delivered the baby without known complications and made the assessment that I would not be needed any further. Arjun Trejo CRNA, A
[2019-10-14] MEDS: Acetaminophen/Codeine 300-30 MG Tab PO PRN ×2 (12:29→17:42)
[2019-10-14] MEDS: Prenatal Multivitamin with Calcium/Folic Acid/Fe Fumarate Cap PO SCH (12:33)
[2019-10-14] MEDS: Escitalopram 20 MG Tab PO SCH (12:33)
[2019-10-15] MEDS: Ibuprofen 800 MG Tab PO SCH (04:31)
--- NOTE | 2019-10-15 07:38 | PCM.PNPP ---
- General Info Date of Service: 10/15/19 Admission Dx/Problem (Free Text): Patient feeling well. She has no concerns today. Vaginal bleeding slowing without abdominal pain. She wants to go home today. - General Info Date of Service: 10/15/19 - Patient Data Vital Signs - Most Recent: Last Vital Signs Temp 97.6 F 10/15/19 04:00 Pulse 79 10/15/19 04:00 Resp 16 10/15/19 04:00 BP 115/79 10/15/19 04:00 Pulse Ox 97 10/15/19 04:00 Weight - Most Recent: 151 lb Lab Results - Last 24 Hours: Laboratory Results - last 24 hr 10/15/19 Range/Units 06:10 Hgb 10.0 L (11.5-15.5) g/dL Hct 30.6 (30.0-51.3) % Med Orders - Current: Current Medications Acetaminophen/Codeine Phosphate (Tylenol With Codeine No.3 300mg/30mg) 1 tab PO Q4H PRN PRN Reason: Pain (moderate 4-6) Last Admin: 10/14/19 17:42 Dose: 1 tab Escitalopram Oxalate (Lexapro) 20 mg PO DAILY [facility] Last Admin: 10/14/19 12:33 Dose: 20 mg Ibuprofen (Motrin) 800 mg PO Q8H [facility] Last Admin: 10/15/19 04:31 Dose: 800 mg Multivit/Folic Acid/Iron (-U) 1 each PO DAILY [facility] Last Admin: 10/14/19 12:33 Dose: 1 each Witch Rama (Tucks) 1 pad TOP ASDIRECTED PRN PRN Reason: Hemorrhoids Discontinued Medications Ampicillin Sodium 2 gm/ Sodium (Chloride) 100 mls @ 200 mls/hr IV ONETIME ONE Stop: 10/14/19 05:01 Last Admin: 10/14/19 04:41 Dose: 200 mls/hr Lactated Ringer's (Ringers, Lactated) 1,000 mls @ 999 mls/hr IV BOLUS [facility] Last Admin: 10/14/19 04:19 Dose: 999 mls/hr Oxytocin (Pitocin) 10 unit IM ONETIME ONE Stop: 10/14/19 05:01 Last Admin: 10/14/19 05:10 Dose: 10 unit - Interaction Disposition, : in Room with Family Feeding: Attempted ; Nursed Fair/Poor Support Person: - Recovery Exam Fundal Tone: Firm Fundal Level: At Umbilicus Fundal Placement: Midline Lochia Amount: Moderate Lochia Color: Rubra/Red Perineum Description: Intact, Minimal Bruising/Swelling Episiotomy/Laceration: None Bladder Status: Voiding Urinary Elimination: Voided - Exam General: Alert, Oriented, Cooperative GI/Abdominal Exam: No Distention, Other (Fundus firm) Extremities: No Pedal Edema - Problem List & Annotations (1) Vaginal delivery SNOMED Code(s): 221877920 Code(s): O80 - ENCOUNTER FOR FULL-TERM UNCOMPLICATED DELIVERY Status: Acute Current Visit: No (2) Group beta Strep positive SNOMED Code(s): 091175662, 117240649 Code(s): B95.1 - STREPTOCOCCUS, GROUP B, CAUSING DISEASES CLASSD ELSWHR Status: Acute Current Visit: Yes (3) Meconium staining SNOMED Code(s): 144391539 Code(s): P96.83 - MECONIUM STAINING Status: Acute Current Visit: Yes - Problem List Review Problem List Initiated/Reviewed/Updated: Yes - My Orders Last 24 Hours: My Active Orders 10/14/19 09:00 Escitalopram [Lexapro] 20 mg PO DAILY Vit/FA/Fe Fumarate [-U] 1 each PO DAILY - Plan Plan:: 1. Discharge to home 2. Recheck in 6 weeks for check 3. Continue vitamins, Lexapro and [id number] ibuprofen for discomfort.
--- NOTE | 2019-10-15 07:41 | PCM.DCSUM1 ---
Discharge Summary - Hospital Course Free Text/Narrative:: Hospital course-patient elected to breast-feed. Her vaginal bleeding slowed nicely. On day 1 her hemoglobin was 10.0. Patient elected to go home. She is not ibuprofen for discomfort and had no concerns. We restarted her Lexapro after her delivery. We'll discharge to home on Lexapro, ibuprofen over- the-counter and vitamins once a day. Brief History: 24-year-old due date 10/23/19 comes in spontaneous labor. Spontaneous rupture memories. She is group B positive and was given 2 g ampicillin. Most of it got him before she delivered. Patient had an healthy baby girl. Diagnosis: Stroke: No - Discharge Data Discharge Date: 10/15/19 Discharge Disposition: Home, Self-Care 01 Condition: Good - Referral to Home Health Primary Care Physician: Ori Thompson MD - Discharge Diagnosis/Problem(s) (1) Vaginal delivery SNOMED Code(s): 793769186 ICD Code: O80 - ENCOUNTER FOR FULL-TERM UNCOMPLICATED DELIVERY Status: Acute Current Visit: No (2) Group beta Strep positive SNOMED Code(s): 971275224, 692866079 ICD Code: B95.1 - STREPTOCOCCUS, GROUP B, CAUSING DISEASES CLASSD ELSWHR Status: Acute Current Visit: Yes (3) Meconium staining SNOMED Code(s): 683358798 ICD Code: P96.83 - MECONIUM STAINING Status: Acute Current Visit: Yes - Patient Instructions Diet: Regular Diet as Tolerated Activity: As Tolerated Driving: Do Not Drive Notify Provider of: Fever, Increased Pain, Swelling and Redness, Drainage, Nausea and/or Vomiting Other/Special Instructions: 1. Recheck in 6 weeks for care. 2. Over- the-counter ibuprofen for discomfort - Discharge Plan Home Medications: Home Meds Escitalopram [Lexapro] 20 mg PO DAILY 05/07/16 [History] Vit/FA/Fe Fumarate [-U] 1 each PO DAILY cap 10/15/19 [Rx] Patient Handouts: Breast Pumping Tips, and Mastitis, Baby Blues, and Self-Care, [id number], Hand Washing, Easy-to- Read, Tips for a Good Latch, [id number], Care After Vaginal Delivery - Discharge Summary/Plan Comment DC Time >30 min.: No - Patient Data Vitals - Most Recent: Last Vital Signs Temp 97.6 F 10/15/19 04:00 Pulse 79 10/15/19 04:00 Resp 16 10/15/19 04:00 BP 115/79 10/15/19 04:00 Pulse Ox 97 10/15/19 04:00 Weight - Most Recent: 151 lb Lab Results - Last 24 hrs: Laboratory Results - last 24 hr 10/15/19 Range/Units 06:10 Hgb 10.0 L (11.5-15.5) g/dL Hct 30.6 (30.0-51.3) % Med Orders - Current: Current Medications Acetaminophen/Codeine Phosphate (Tylenol With Codeine No.3 300mg/30mg) 1 tab PO Q4H PRN PRN Reason: Pain (moderate 4-6) Last Admin: 10/14/19 17:42 Dose: 1 tab Escitalopram Oxalate (Lexapro) 20 mg PO DAILY [facility] Last Admin: 10/14/19 12:33 Dose: 20 mg Ibuprofen (Motrin) 800 mg PO Q8H [facility] Last Admin: 10/15/19 04:31 Dose: 800 mg Multivit/Folic Acid/Iron (-U) 1 each PO DAILY [facility] Last Admin: 10/14/19 12:33 Dose: 1 each Witch Rama (Tucks) 1 pad TOP ASDIRECTED PRN PRN Reason: Hemorrhoids Discontinued Medications Ampicillin Sodium 2 gm/ Sodium (Chloride) 100 mls @ 200 mls/hr IV ONETIME ONE Stop: 10/14/19 05:01 Last Admin: 10/14/19 04:41 Dose: 200 mls/hr Lactated Ringer's (Ringers, Lactated) 1,000 mls @ 999 mls/hr IV BOLUS [facility] Last Admin: 10/14/19 04:19 Dose: 999 mls/hr Oxytocin (Pitocin) 10 unit IM ONETIME ONE Stop: 10/14/19 05:01 Last Admin: 10/14/19 05:10 Dose: 10 unit
[2019-10-15] MEDS: Prenatal Multivitamin with Calcium/Folic Acid/Fe Fumarate Cap PO SCH (09:10)
[2019-10-15] MEDS: Escitalopram 20 MG Tab PO SCH (09:10)
[2019-10-15 11:46] VITALS: BP 118/71; PULSE 76
== END 2019-10-15 11:51 | disposition home or self-care (01) | DRG 560 ==
LOC: FB.OBCHECK 04:08 → FB.OB 04:09 → FB.OBCHECK 04:30 → FB.OB 04:30
PROVIDERS: ADMIT Family Medicine; ATTEND Family Medicine
PROC: 10E0XZZ Delivery of Products of Conception, External Approach (ICD-10-PCS; principal; 2019-10-14)
DX: O99.824 Streptococcus B carrier state complicating childbirth (principal); Z3A.38 38 weeks gestation of pregnancy; Z37.0 Single live birth; O69.81X0 Labor and delivery complicated by cord around neck, without compression, not applicable or unspecified; O77.0 Labor and delivery complicated by meconium in amniotic fluid
CPT/HCPCS: 36415; 59409; 85014; 85018; A9270-GY; J0290; J2590; J7050; J7120

== ENCOUNTER 2020-08-11 17:14 | Emergency (ER) | payer BC, MEDICAID ==
--- NOTE | 2020-08-11 18:13 | EDM.PDOC ---
ED HPI GENERAL MEDICAL PROBLEM - General Chief Complaint: Genitourinary Problem Stated Complaint: Dysuria Time Seen by Provider: 08/11/20 17:40 Source of Information: Reports: Patient History Limitations: Reports: No Limitations - History of Present Illness INITIAL COMMENTS - FREE TEXT/NARRATIVE: increased urinary frequency with low back pain for 2 days , similar to past episodes of UTI Onset: Today Duration: Getting Worse Location: Reports: Back Quality: Reports: Ache Severity: Mild Improves with: Reports: None Worsens with: Reports: None Associated Symptoms: Reports: No Other Symptoms - Related Data Allergies Allergy/AdvReac Type Severity Reaction Status Date / Time hydrocodone Allergy Itching Verified 05/27/18 15:52 Home Meds: Home Meds Escitalopram [Lexapro] 20 mg PO DAILY 05/07/16 [History] Vit/FA/Fe Fumarate [-U] 1 each PO DAILY cap 10/15/19 [Rx] Sulfamethoxazole/Trimethoprim [Bactrim Ds Tablet] 1 each PO BID #6 tablet 08/11/20 [Rx] Past Medical History - Past Health History Medical/Surgical History: Denies Medical/Surgical History Respiratory History: Reports: Asthma Other Respiratory History: stress induced asthma 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 Psychiatric History: Reports: ADD, Anxiety, Depression, Other (See Below) Other Psychiatric History: on lexapro and Hydroxyzine. Hematologic History: Reports: Anemia - Infectious Disease History Infectious Disease History: Reports: Chicken Pox Social & Family History - Family History Family Medical History: No Pertinent Family History - Caffeine Use Caffeine Use: Reports: Coffee Caffeine Use Comment: rarely ED ROS GENERAL - Review of Systems Review Of Systems: Comprehensive ROS is negative, except as noted in HPI. ED EXAM, RENAL/ - Physical Exam Exam: See Below Exam Limited By: No Limitations General Appearance: Alert, WD/WN, No Apparent Distress Ears: Normal External Exam Nose: Normal Inspection Throat/Mouth: Normal Inspection Head: Atraumatic, Normocephalic Neck: Supple, Non-Tender Respiratory/Chest: No Respiratory Distress, Lungs Clear Back Exam: Normal Inspection, Full Range of Motion Extremities: Normal Inspection, Normal Range of Motion Neurological: Alert, Oriented Psychiatric: Normal Affect Skin Exam: Warm, Dry Course - Orders/Labs/Meds Orders: Active Orders 24 hr Category Date Time Status CULTURE URINE [RM] Stat Lab 08/11/20 18:09 Ordered Labs: Laboratory Tests 08/11/20 Range/Units 17:49 Urine Color Yellow (YELLOW) Urine Appearance Clear (CLEAR) Urine pH 5.0 (5.0-6.5) Ur Specific [place] 1.020 (1.010-1.025) Urine Protein Negative (NEGATIVE) mg/dL Urine Glucose (UA) Normal (NORMAL) mg/dL Urine Ketones 15 H (NEGATIVE) mg/dL Urine Occult Blood Negative (NEGATIVE) Urine Nitrite Negative (NEGATIVE) Urine Bilirubin Negative (NEGATIVE) Urine Urobilinogen Normal (NEGATIVE) mg/dL Ur Leukocyte Esterase Negative (NEGATIVE) Urine RBC 0-5 (0-5) Urine WBC 0-5 (0-5) Ur Squamous Epith Cells Few H (NS,R,O) Urine Bacteria Rare H (NS) Urine Mucus Few H (NS) Departure - Departure Time of Disposition: 18:10 Disposition: Home, Self-Care 01 Condition: Fair Clinical Impression: UTI, Urinary tract infectious disease - Discharge Information *PRESCRIPTION DRUG MONITORING PROGRAM REVIEWED*: Not Applicable *COPY OF PRESCRIPTION DRUG MONITORING REPORT IN PATIENT LINDSEY: Not Applicable Prescriptions: Sulfamethoxazole/Trimethoprim [Bactrim Ds Tablet] 1 each PO BID #6 tablet Forms: ED Department Discharge - My Orders Last 24 Hours: My Active Orders 08/11/20 18:09 CULTURE URINE [RM] Stat - Assessment/Plan Last 24 Hours: My Active Orders 08/11/20 18:09 CULTURE URINE [RM] Stat
[2020-08-11 19:25] VITALS: BP 119/75; PULSE 83
== END 2020-08-11 18:10 | disposition home or self-care (01) ==
LOC: FB.ED 17:14
DX: N39.0 Urinary tract infection, site not specified (principal); J45.909 Unspecified asthma, uncomplicated; Z88.5 Allergy status to narcotic agent; Z79.899 Other long term (current) drug therapy
CPT/HCPCS: 81001; 87086; 99283

== ENCOUNTER 2021-05-03 19:59 | Emergency (ER) | payer MEDICAID ==
[2021-05-03] MEDS ORDERED: Lactated Ringers 1,000 ML IV ONE (20:10)
[2021-05-03] MEDS ORDERED: Prochlorperazine 10 MG/2 ML SDV IVPUSH ONE (20:11)
[2021-05-03] MEDS ORDERED: diphenhydrAMINE 50 MG/ML SDV IVPUSH ONE (20:11)
--- NOTE | 2021-05-03 20:34 | EDM.PDOC ---
ED HPI GENERAL MEDICAL PROBLEM - General Chief Complaint: Gastrointestinal Problem Stated Complaint: DEHYDRATED/PREG/COVID Time Seen by Provider: 05/03/21 20:25 Source of Information: Reports: Patient, Old Records, RN History Limitations: Reports: No Limitations - History of Present Illness INITIAL COMMENTS - FREE TEXT/NARRATIVE: 26 yo female early in her 2nd trimester of presents with nausea, vomiting, and mild diarrhea. No hematemesis. No fever. Is dizzy with standing. Was dx with Covid recently. Has not been vaccinated. Has Zofran tabs that are not helping. Onset: Gradual Duration: Day(s):, Getting Worse Location: Reports: Generalized Quality: Reports: Other (pain is not an issue) Severity: Moderate (nausea) Improves with: Reports: None Worsens with: Reports: Eating Context: Reports: Other (See HPI) Associated Symptoms: Reports: Loss of Appetite, Nausea/Vomiting, Other (mild diarrhea). 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 Psychiatric History: Reports: ADD, Anxiety, Depression, Other (See Below) Other Psychiatric History: on lexapro and Hydroxyzine. Hematologic History: Reports: Anemia - Infectious Disease History Infectious Disease History: Reports: Chicken Pox Social & Family History - Family History Family Medical History: No Pertinent Family History - Caffeine Use Caffeine Use: Reports: None Caffeine Use Comment: rarely ED ROS GENERAL - Review of Systems Review Of Systems: See Below Constitutional: Reports: Malaise HEENT: Reports: Other (anosmia) Respiratory: Reports: No Symptoms Cardiovascular: Reports: Lightheadedness Endocrine: Reports: No Symptoms GI/Abdominal: Reports: Diarrhea, Nausea, Vomiting. Denies: Black Stool, Bloody Stool, Constipation, Hematemesis, Hematochezia, Melena : Reports: No Symptoms Musculoskeletal: Reports: No Symptoms Skin: Reports: No Symptoms Neurological: Reports: No Symptoms Psychiatric: Reports: No Symptoms ED EXAM, GI/ABD - Physical Exam Exam: See Below Exam Limited By: No Limitations General Appearance: Alert, WD/WN, No Apparent Distress Eyes: Bilateral: Normal Appearance Ears: Normal External Exam, Normal Canal, Hearing Grossly Normal Nose: Normal Inspection, No Blood Throat/Mouth: Normal Inspection, Normal Lips, Normal Oropharynx, Normal Voice, No Airway Compromise Head: Atraumatic, Normocephalic Neck: Normal Inspection Respiratory/Chest: No Respiratory Distress, Lungs Clear, Normal Breath Sounds, No Accessory Muscle Use Cardiovascular: Regular Rate, Rhythm, No Edema GI/Abdominal Exam: Normal Bowel Sounds, Soft, Non-Tender, No Distention. No: Distended Back Exam: Normal Inspection Extremities: Normal Inspection, Normal Range of Motion, Non-Tender, No Pedal Edema Neurological: Alert, Oriented, CN II-XII Intact, Normal Cognition, No Motor/Sensory Deficits Psychiatric: Normal Affect, Normal Mood Skin Exam: Warm, Dry, Intact, Normal Color, No Rash Course - Orders/Labs/Meds Orders: Active Orders 24 hr Category Date Time Status UA W/MICROSCOPIC [URIN] Stat Lab 05/03/21 21:45 Stop Req Magnesium Sulfate/Water [Magnesium Sulfate in Water 2 Med 05/03/21 21:45 Stop Req GM/50 ML] 2 gm Premix Bag 1 bag IV ONETIME Medication Orders Magnesium Sulfate 2 gm/ Premix 50 mls @ 12.5 mls/hr IV ONETIME ONE Stop: 05/04/21 01:44 Labs: Laboratory Tests 05/03/21 05/03/21 Range/Units 21:05 21:05 Sodium 140 (135-145) mmol/L Potassium 3.2 L (3.5-5.3) mmol/L Chloride 105 (100-110) mmol/L Carbon Dioxide 24 (21-32) mmol/L BUN 10 (7-18) mg/dL Creatinine 0.6 (0.55-1.02) mg/dL Est Cr Clr Drug Dosing 119.95 mL/min Estimated GFR (MDRD) > 60 (>60) BUN/Creatinine Ratio 16.7 (9-20) Glucose 92 (80-116) mg/dL Calcium 7.5 L (8.6-10.2) mg/dL Magnesium 1.5 L (1.8-2.5) mg/dL Meds: Medications Generic Name Dose Route Start Last Admin Trade Name Marco Antonio PRN Reason Stop Dose Admin Magnesium Sulfate 2 gm/ Premix 50 mls @ 12.5 mls/hr 05/03/21 21:45 IV 05/04/21 01:44 ONETIME ONE Discontinued Medications Generic Name Dose Route Start Last Admin Trade Name Marco Antonio PRN Reason Stop Dose Admin Diphenhydramine HCl 25 mg 05/03/21 20:11 05/03/21 20:56 Diphenhydramine 50 Mg/Ml Sdv IVPUSH 05/03/21 20:12 25 mg ONETIME ONE Administration Lactated Ringer's 1,000 mls @ 1,000 mls/hr 05/03/21 20:10 05/03/21 20:40 Ringers, Lactated IV 05/03/21 21:09 1,000 mls/hr BOLUS ONE Administration Potassium Chloride 40 meq 05/03/21 21:28 05/03/21 21:34 Potassium Chloride 20 Meq Tab.Er PO 05/03/21 21:29 40 meq ONETIME ONE Administration Prochlorperazine Edisylate 10 mg 05/03/21 20:11 05/03/21 20:59 Prochlorperazine 10 Mg/2 Ml Sdv IVPUSH 05/03/21 20:12 10 mg ONETIME ONE Administration - Re-Assessments/Exams Free Text/Narrative Re-Assessment/Exam: 05/03/21 21:57 Is feeling a lot better and ready to go home. Does not want to hang around tonight for the IV Magesium. Will have her return tomorrow as an outpatient for mag, LR, and compazine. Departure - Departure Time of Disposition: 22:00 Disposition: Home, Self-Care 01 Condition: Fair Clinical Impression: Mild dehydration, Hypomagnesemia, Hypokalemia, COVID-19 - Discharge Information *PRESCRIPTION DRUG MONITORING PROGRAM REVIEWED*: Not Applicable *COPY OF PRESCRIPTION DRUG MONITORING REPORT IN PATIENT LINDSEY: Not Applicable Referrals: Ori Thompson MD [Primary Care Provider] - Forms: ED Department Discharge Additional Instructions: Return tomorrow for more IV fluids, magnesium and nausea medication. Return otherwise as needed. Try to get more potassium in your diet(yogurt) and fruit, to replace your potassium to normal levels. - My Orders Last 24 Hours: My Active Orders 05/03/21 21:45 UA W/MICROSCOPIC [URIN] Stat Magnesium Sulfate/Water [Magnesium Sulfate in Water 2 GM/50 ML] 2 gm Premix Bag 1 bag IV ONETIME - Assessment/Plan Last 24 Hours: My Active Orders 05/03/21 21:45 UA W/MICROSCOPIC [URIN] Stat Magnesium Sulfate/Water [Magnesium Sulfate in Water 2 GM/50 ML] 2 gm Premix Bag 1 bag IV ONETIME
[2021-05-03] MEDS ORDERED: Potassium Chloride 20 MEQ Tab.ER PO ONE (21:28)
[2021-05-03] MEDS ORDERED: Magnesium Sulfate/Water 2 GM in Premix Bag 1 BAG IV ONE (21:45)
[2021-05-04 01:28] VITALS: BP 142/66; PULSE 89
== END 2021-05-03 22:10 | disposition home or self-care (01) ==
LOC: FB.ED 19:59
DX: O98.512 Other viral diseases complicating pregnancy, second trimester (principal); O99.282 Endocrine, nutritional and metabolic diseases complicating pregnancy, second trimester; U07.1 COVID-19; E86.0 Dehydration; E83.42 Hypomagnesemia; E87.6 Hypokalemia; Z88.5 Allergy status to narcotic agent; Z3A.00 Weeks of gestation of pregnancy not specified
CPT/HCPCS: 36415; 80048; 83735; 96374; 96375; 99284; A9270; J0780; J1200; J7120